=== PATIENT | female | born 1980 | race Caucasian/White ===

== ENCOUNTER 2018-03-22 15:29 | Outpatient (CLI) | payer BC, OTHER ==
--- NOTE | 2018-03-22 19:40 | ULT ---
ULTRASOUND OBSTETRICAL COMPLETE: 03/22/2018 HISTORY: A 37-year-old female. Evaluate size and dates. FINDINGS: number: Peraza. lie: Transverse with head to maternal left. Maternal cervix: 6 cm long and closed. Placenta: Posterior and right lateral. No placenta previa. Amniotic fluid volume: TASNEEM=16.5 cm. heart rate: 149 bpm The following anatomy is visualized, with no evidence of anomalies: Head, lateral ventricles, cerebellum, nose and lips, spine, upper limbs, lower limbs, four chamber he art, umbilical cord, cord insertion, stomach, kidneys, and bladder. biometry: Head circumference (HC): 18.1 cm 20w 4d Biparietal diameter (BPD): 4.8 cm 20w 4d Abdominal circumference (AC): 15.5 cm 20w 5d Femur length (FL): 3.5 cm 21w 1d Average ultrasound age (AUA): 20w 6d Estimated date of delivery (WILMER): 08/03/2018 Last menstrual period (LMP): 10/28/2017 Gestational age by LMP: 20w 5d Estimated weight (EFW): 380 g +/- 56 g (0 lb 13 oz, +/- 2 oz). IMPRESSION: 1. Live second trimester intrauterine gestation. 2. Estimated gestational age of 20 weeks, 6 days. 3. Transverse lie. 4. No anatomical abnormalities. jn [] POS: TPC
== END 2018-03-22 15:30 | disposition home or self-care (01) ==
LOC: BICULT 15:29
PROVIDERS: ATTEND Family Medicine
DX: O09.522 Supervision of elderly multigravida, second trimester (principal); Z3A.20 20 weeks gestation of pregnancy
CPT/HCPCS: 76805

== ENCOUNTER 2018-06-20 15:56 | Inpatient (IN) | payer BC, OTHER ==
[2018-06-20] MEDS ORDERED: Promethazine HCl 25 MG/ML VIAL IM PRN (16:38)
[2018-06-20] MEDS ORDERED: Acetaminophen 500 MG TAB PO PRN (16:38)
[2018-06-20] MEDS ORDERED: Docusate 100 MG CAP PO PRN (16:38)
[2018-06-20] MEDS ORDERED: Ondansetron ODT 8 MG TAB PO PRN (17:00)
[2018-06-20] MEDS ORDERED: hydrALAZINE 20 MG/ML VIAL SLOW IVP SCH (17:00)
[2018-06-20 17:59] LABS: Hemoglobin 10.8 g/dL (12.0-16.0); Mean Corpuscular HGB CONC 32.5 g/dL (32.0-36.0); Mean Corpuscular Hemoglobin 27.3 pg (27.0-31.0); Mean Corpuscular Volume 83.9 fL (78.0-98.0); Mean Platelet Volume 10.3 fL (7.4-10.4); Platelet Count 248 thou/uL (130-400); RBC Distribution Width 13.2 % (11.5-14.5); Red Blood Cell (RBC) Count 3.97 mill/uL (4.20-5.40); White Blood Cell (WBC) Count 11.4 thou/uL (4.8-10.8)
[2018-06-20] MEDS: Betamet Acet/Betamet Na Ph 30 MG/5 ML VIAL IM SCH (18:06)
[2018-06-20 18:25] LABS: ALT (SGPT) 12 U/L (8-55); AST (SGOT) 13 U/L (5-34); Alkaline Phosphatase 85 U/L (40-150); Anion Gap 12 mmol/L (10-20); BUN (Urea Nitrogen) 21 mg/dL (7.0-18.7); Bilirubin, Total 0.2 mg/dL (0.2-1.2); Calc. Creatinine Clearance 187 mL/min (70-130); Calcium 9.4 mg/dL (7.8-10.44); Carbon Dioxide 19 mmol/L (22-29); Chloride 109 mmol/L (98-107); Estimated GFR-MDRD 82; Globulin 2.9 g/dL (2.4-3.5); Glucose 76 mg/dL (70-105); Potassium 4.7 mmol/L (3.5-5.1); Protein, Total 5.9 g/dL (6.0-8.3); Sodium 135 mmol/L (136-145); Uric Acid 6.7 mg/dL (2.6-6.0)
--- NOTE | 2018-06-20 19:31 | ULT ---
Ultrasound biophysical profile: 06/20/2018 HISTORY: 37-year-old female with preeclampsia FINDINGS: tone: 2 breathin movements: 2 Amniotic fluid: 0 TASNEEM: 5 cm IMPRESSION: 1. Oligohydramnios. 2. Biophysical profile score of 6 out of 8, excluding the nonstress test.
--- NOTE | 2018-06-20 20:34 | ULT ---
Ultrasound obstetrical Limited: DATE: 06/20/2018 HISTORY: 37-year-old female with preeclampsia FINDINGS: number:Peraza lie:Breech Maternal cervix: Obscured Placenta:Lateral. No placenta previa. Amniotic fluid: TASNEEM:5 cm. heart rate:149 bpm. anatomy was not evaluated. biometry: BPD: 7.8 cm: 31 w 3 d HC: 30.4 cm: 33 w 6 d AC:27.2 cm: 31 w 2 d FL:6.0 cm: 31 w 3 d Average ultrasound age: 32 w 4 d Estimated date of delivery: 08/11/2018 Estimated weight: 1793g + -265g IMPRESSION: 1) 3rd trimester intrauterine gestation. 2) estimated gestational age of: 32 weeks 4 days 3) lie:Breech 4) oligohydramnios
--- NOTE | 2018-06-20 20:43 | ULT ---
Ultrasound Doppler duplex umbilical artery: 06/20/2018 HISTORY: 37-year-old female with preeclampsia in third trimester of TECHNIQUE: Grayscale, color-flow, and spectral analysis, of umbilical artery FINDINGS: Peak systolic velocity in centimeters per second, end diastolic velocity in centimeters per second, a nd S/D ratio: At cord insertion: 45.4, 18.5, and 2.45 At mid cord: 39.2, 20.1, and 1.95 At placenta insertion: 32.3, 16.0, and 2.02 IMPRESSION: As above
--- NOTE | 2018-06-20 21:46 | ULT ---
RIGHT LOWER EXTREMITY VENOUS DUPLEX ULTRASOUND INCLUDING COLOR AND SPECTRAL DOPPLER IMAGING: History: Right leg edema, 33 weeks . FINDINGS: The exam was performed from groin to ankle including visualized greater saphenous, common femoral, coughlin perficial femoral, profunda femoral, popliteal, trifurcation and posterior tibial veins regions. Ther e is phasic flow at all levels with normal compressibility and normal augmentation. IMPRESSION: No evidence for deep venous thrombosis. POS: RRE
[2018-06-21] MEDS: hydrALAZINE 20 MG/ML VIAL SLOW IVP PRN (00:05)
[2018-06-21] MEDS: Betamet Acet/Betamet Na Ph 30 MG/5 ML VIAL IM SCH (18:21)
[2018-06-21 19:23] LABS: Urine Total Volume 1350 mL (600-1600)
[2018-06-21 20:07] LABS: Protein - 24 Hr 5792 mg/24 hr (Less than 300); Protein, Urine 429 mg/dL (1-14)
[2018-06-22] MEDS ORDERED: Calcium Carbonate 500 MG ChewTAB PO PRN (02:07)
--- NOTE | 2018-06-22 10:42 | ULT ---
Biophysical profile: 06/22/2018 COMPARISON: 06/20/2018 HISTORY: Preeclampsia TECHNIQUE: Multiplanar grayscale sonographic imaging of the gravid uterus obtained. FINDINGS: There is a single intrauterine gestation demonstrating a heart rate of 149 bpm. presentation is vertex. There is heterogeneity of the placenta. Amniotic fluid index is 6.2 cm. The sole rounding machine operator reports a 2 out of 2 score for tone, movement, and amniotic fluid. The so nographer reports a 0 out of 2 score for breathing. IMPRESSION: Single live intrauterine gestation as above. Biophysical profile score is 6 out of 8. The sole rounding machine operator reports that this information was relayed to Sasha, the labor and delivery nurse, at the time of this study. Low amniotic fluid index of 6.2 cm.
[2018-06-23] MEDS: hydrALAZINE 20 MG/ML VIAL SLOW IVP PRN ×2 (05:40→13:08)
[2018-06-23 06:40] LABS: Hemoglobin 10.2 g/dL (12.0-16.0); Mean Corpuscular HGB CONC 32.3 g/dL (32.0-36.0); Mean Corpuscular Hemoglobin 26.7 pg (27.0-31.0); Mean Corpuscular Volume 82.8 fL (78.0-98.0); Mean Platelet Volume 10.9 fL (7.4-10.4); Platelet Count 246 thou/uL (130-400); RBC Distribution Width 13.3 % (11.5-14.5); Red Blood Cell (RBC) Count 3.81 mill/uL (4.20-5.40); White Blood Cell (WBC) Count 12.1 thou/uL (4.8-10.8)
[2018-06-23 07:05] LABS: ALT (SGPT) 20 U/L (8-55); AST (SGOT) 18 U/L (5-34); Albumin 2.6 g/dL (3.5-5.0); Alkaline Phosphatase 71 U/L (40-150); Anion Gap 11 mmol/L (10-20); BUN (Urea Nitrogen) 20 mg/dL (7.0-18.7); Bilirubin, Total Less than 0.2 mg/dL (0.2-1.2); Calc. Creatinine Clearance 214 mL/min (70-130); Calcium 8.1 mg/dL (7.8-10.44); Carbon Dioxide 20 mmol/L (22-29); Chloride 109 mmol/L (98-107); Estimated GFR-MDRD Greater than 90; Globulin 2.5 g/dL (2.4-3.5); Glucose 91 mg/dL (70-105); Potassium 4.3 mmol/L (3.5-5.1); Protein, Total 5.1 g/dL (6.0-8.3); Sodium 136 mmol/L (136-145); Uric Acid 8.1 mg/dL (2.6-6.0)
--- NOTE | 2018-06-23 07:36 | ULT ---
BIOPHYSICAL PROFILE OB ULTRASOUND: Date: 06/23/18 INDICATION: heart tone deceleration. FINDINGS: Reference made to 06/22/18 exam. movement: 2 tone: 2 breathing movements: 2 Amniotic fluid volume: 2 Biophysical profile score: 8/8 TASNEEM measured at 9.5 cardiac activity documented at 152 beats/minute. As demonstrated, fetus is in cephalic lie. IMPRESSION: Biophysical profile score 8/8. POS: TAMARK
--- NOTE | 2018-06-23 08:56 | ULT ---
LIMITED OBSTETRICAL ULTRASOUND UMBILICAL ARTERIAL DOPPLER ULTRASOUND: Date: 06/23/2018 HISTORY: 37-year-old female with preeclampsia TECHNIQUE: Multiplanar grayscale sonographic imaging of the gravid uterus obtained. Doppler interrog ation of the umbilical artery with color flow and spectral analysis performed. FINDINGS: Cervical length is 5 cm. Single intrauterine gestation present with vertex presentation. heart rate is 157 bpm. anatomy was not fully assessed on this examination. The placenta is located on the right, and demonstrates no evidence for abruption or previa. Amniotic fluid index is 11 cm. Biometry: BPD: 8.2 cm, 32 weeks 6 days HC: 31.1 cm, 34 weeks 5 days AC: 29.3 cm , 33 weeks 2 days FL: 6.3 cm, 32 weeks 5 days Average age based on ultrasound is 33 weeks 5 days. Estimated date of delivery is 08/06/2018 Estimated weight is 2150 g, +/- 318 g. Umbilical arterial Doppler ultrasound performed. Peak systolic velocity of the umbilical artery range s from 37 cm/second to 52 cm/second with a systolic/diastolic ratio measuring 1.8-2.7 cm. IMPRESSION: Single live intrauterine gestation as detailed above. Transcribed Date/Time: 06/23/2018 9:17 AM
[2018-06-23] MEDS ORDERED: Penicillin G Potassium 5 MILL.UNITS VIAL ONE (11:36)
[2018-06-23] MEDS ORDERED: Magnesium Sulfate 20 gm/500 ml 20 GM/500 ML BAG ONE (11:36)
[2018-06-23 12:18] LABS: Hemoglobin 11.3 g/dL (12.0-16.0); Mean Corpuscular HGB CONC 32.3 g/dL (32.0-36.0); Mean Corpuscular Hemoglobin 26.9 pg (27.0-31.0); Mean Corpuscular Volume 83.5 fL (78.0-98.0); Mean Platelet Volume 10.7 fL (7.4-10.4); Platelet Count 251 thou/uL (130-400); RBC Distribution Width 13.5 % (11.5-14.5); Red Blood Cell (RBC) Count 4.19 mill/uL (4.20-5.40); White Blood Cell (WBC) Count 12.5 thou/uL (4.8-10.8)
[2018-06-23] MEDS ORDERED: NS w/ Oxytocin 10 units 500 ML ONE (12:25)
[2018-06-23] MEDS ORDERED: hydrALAZINE 20 MG/ML VIAL ONE (13:02)
[2018-06-23] MEDS ORDERED: Ketorolac Tromethamine 30 MG/ML VIAL ONE ×2 (14:00→15:39)
[2018-06-23] MEDS ORDERED: Metoclopramide HCl 10 MG/2 ML VIAL ONE ×2 (14:00→14:41)
[2018-06-23] MEDS ORDERED: Ondansetron PF 4 MG/2 ML Vial ONE ×2 (14:00→14:41)
[2018-06-23] MEDS ORDERED: Bicitra 30 ML UDCUP ONE (14:26)
[2018-06-23] MEDS ORDERED: MORPHINE 5 MG/10 ML PF VIAL ONE (14:40)
[2018-06-23] MEDS ORDERED: Oxytocin 10 UNITS/ML VIAL ONE (14:41)
[2018-06-23] MEDS ORDERED: HYDROcodone/Acetaminophen 5/325 mg Tablet PO PRN ×2 (16:16)
[2018-06-23] MEDS ORDERED: Calcium Gluconate 4.6 MEQ, Admixture Fee 1 EACH in Sodium Chloride 0.9% 100 ML IVPB PRN (16:16)
[2018-06-23] MEDS ORDERED: NS / Oxytocin 40 units/1000ml 1,000 ML IV SCH (16:16)
[2018-06-23] MEDS ORDERED: diphenhydrAMINE 25 MG CAP PO PRN (16:16)
[2018-06-23] MEDS ORDERED: Magnesium Sulfate 20 GM/WATER 500 ML BAG IVPB SCH (16:16)
[2018-06-23] MEDS ORDERED: Lanolin Ointment 7 GM TUBE TOP PRN (16:16)
[2018-06-23] MEDS ORDERED: Meperidine HCl/PF 25 MG/ML VIAL IM PRN (16:16)
[2018-06-23] MEDS ORDERED: Bisacodyl 10 MG SUPP PR PRN (16:16)
[2018-06-23] MEDS ORDERED: Simethicone Chewable 80 MG TAB PO PRN (16:16)
[2018-06-23] MEDS ORDERED: HYDROmorphone 2 MG/ML VIAL SLOW IVP PRN (16:21)
[2018-06-23] MEDS ORDERED: Ondansetron HCl/PF 4 MG/2 ML Vial IVP PRN (16:21)
[2018-06-23] MEDS ORDERED: L&D-Morphine 4 MG/ML VIAL SLOW IVP PRN (16:21)
[2018-06-23] MEDS: Magnesium Sulfate 20 gm/500 ml 20 GM/500 ML BAG IVPB SCH (16:30)
[2018-06-23] MEDS ORDERED: Meperidine HCl/PF 25 MG/ML VIAL ONE (18:44)
[2018-06-23] MEDS: Meperidine HCl/PF 25 MG/ML VIAL SLOW IVP PRN ×2 (18:46→19:20)
[2018-06-23] MEDS: Ondansetron PF 4 MG/2 ML Vial IVP PRN (21:40)
[2018-06-23] MEDS ORDERED: Ibuprofen 800 MG TAB PO SCH (22:00)
--- NOTE | 2018-06-23 23:43 | OP ---
DATE OF PROCEDURE: 06/23/2018 PREOPERATIVE DIAGNOSES: 1. 34 week . 2. Severe preeclampsia. 3. Advanced maternal age. 4. Non-reassuring status. POSTOPERATIVE DIAGNOSES: 1. 34 week . 2. Severe preeclampsia. 3. Advanced maternal age. 4. Non-reassuring status. PROCEDURE PERFORMED: Primary low cervical transverse . HYDROGEN BRAZE FURNACE OPERATOR: Dr. Shah. ANESTHESIA: Spinal. DESCRIPTION OF EVENT: After informed consent was obtained from the patient and her spouse, she was taken to the operating room and spinal anesthesia was administered. She was then prepped and draped in the usual sterile fashion. A Pfannenstiel incision was created with a #10 scalpel blade and carried down to the fascia. Skin bleeders were cauterized with the Bovie. The fascia was nicked in the midline and was extended transversely with [place] scissors. The superior fascial segments were grasped with Kochers and elevated. The underlying rectus muscles were dissected free, first bluntly and then sharply with [place] scissors. This was repeated with inferior fascial segment. Rectus muscles were divided in the midline with blunt dissection. Bladder blade was inserted. The vesicouterine serosa was grasped with a hemostat and elevated and a bladder flap was created with Metzenbaum scissors and blunt dissection. Bladder blade was then re-inserted to protect the bladder. The uterus was entered in the low-transverse fashion with a clean #10 scalpel blade. Clear amniotic fluid was encountered. The vertex was delivered on to the operative field followed by the remainder of the . The cord was clamped x2 and a vigorous male was handed to the staff in attendance. Cord blood was obtained. The placenta was manually extracted. The uterus was exteriorized and freed of clots and debris. The placenta was sent to pathology for review. The uterus was repaired with a running locking suture of 0-Vicryl and a single full-thickness layer followed by a second imbricating layer, which also served to repair the bladder flap. The abdomen was copiously irrigated, Seprafilm was applied to the repair of the uterine incision. At this point, the tubes and ovaries were inspected and the left fimbria was bleeding briskly from one of the segments. Clamping with the hemostat did not control the bleeding nor did electrocautery. Fimbria was removed along with the small section of the distal fallopian tube in modified [place] fashion. The uterus was returned. Hemostasis was again observed. The peritoneum was repaired with running suture of 3-0 Vicryl and the fascia was repaired with a running suture of 0-PDS. Three interrupted sutures of 3-0 Vicryl were placed in subdermal layer to reapproximate the skin, which was closed with skin say. Sponge and instrument counts were correct x4. She tolerated the procedure well and suffered no acute complications. She was taken to Recovery in stable condition, infant to NICU in a stable condition. FINDINGS: Viable male infant, 3 pounds, 15 ounces. SPECIMENS: Placenta and fimbria to pathology. ESTIMATED BLOOD LOSS: 600 mL. Job ID: [id number] MTDD
[2018-06-24] MEDS: Magnesium Sulfate 20 gm/500 ml 20 GM/500 ML BAG IVPB SCH (00:44)
[2018-06-24] MEDS: Ferrous Sulfate 325 MG TAB PO SCH ×3 (00:45→21:02)
[2018-06-24] MEDS: Docusate Calcium (SURFAK) 240 MG CAP PO SCH ×3 (00:45→21:02)
[2018-06-24] MEDS ORDERED: Meperidine HCl/PF 25 MG/ML VIAL ONE (01:17)
[2018-06-24] MEDS: Ondansetron PF 4 MG/2 ML Vial IVP PRN (01:29)
[2018-06-24] MEDS: hydrALAZINE 20 MG/ML VIAL SLOW IVP SCH ×2 (05:32→06:05)
[2018-06-24] MEDS ORDERED: Furosemide 40 MG/4 ML VIAL SLOW IVP SCH (06:00)
--- NOTE | 2018-06-24 06:12 | PDOC.EVN ---
Event Note - Event Note Event Note: CTSP by rn discharge re: OU. Pt. has had no urine output x 3 hours. MG at 2 gms/hr with total IV at 125/hr. BP now 170's systolic, Apresoline ordered. Chest CTA, extremities with 3+ edema. CBC, CHEM 20 and Mg level drawn. Will give Lasix 20 mg now and observe closely. D/w Dr. Holden.
[2018-06-24 06:22] LABS: Hemoglobin 11.2 g/dL (12.0-16.0); Mean Corpuscular Hemoglobin 27.1 pg (27.0-31.0); Mean Corpuscular Volume 84.7 fL (78.0-98.0); Mean Platelet Volume 11.1 fL (7.4-10.4); Platelet Count 80 thou/uL (130-400); RBC Distribution Width 13.9 % (11.5-14.5); Red Blood Cell (RBC) Count 4.14 mill/uL (4.20-5.40); White Blood Cell (WBC) Count 20.9 thou/uL (4.8-10.8)
[2018-06-24 06:38] LABS: ALT (SGPT) 97 U/L (8-55); AST (SGOT) 144 U/L (5-34); Albumin 2.6 g/dL (3.5-5.0); Alkaline Phosphatase 70 U/L (40-150); Anion Gap 15 mmol/L (10-20); BUN (Urea Nitrogen) 27 mg/dL (7.0-18.7); Bilirubin, Total 1.2 mg/dL (0.2-1.2); Calc. Creatinine Clearance 74 mL/min (70-130); Calcium 7.9 mg/dL (7.8-10.44); Carbon Dioxide 19 mmol/L (22-29); Chloride 103 mmol/L (98-107); Estimated GFR-MDRD 28; Globulin 2.6 g/dL (2.4-3.5); Glucose 117 mg/dL (70-105); Potassium 4.7 mmol/L (3.5-5.1); Protein, Total 5.2 g/dL (6.0-8.3); Sodium 132 mmol/L (136-145)
[2018-06-24] MEDS ORDERED: Labetalol HCl 100 MG/20 ML VIAL ONE (06:45)
[2018-06-24] MEDS ORDERED: Labetalol HCl 100 MG/20 ML VIAL SLOW IVP SCH (07:00)
--- NOTE | 2018-06-24 07:55 | RAD ---
CHEST 1 VIEW: HISTORY: PIH, concern for pulmonary edema. FINDINGS: Heart size is normal. The lungs are clear. IMPRESSION: No acute intrathoracic disease. No pneumonia or acute edema. POS: TPC
[2018-06-24] MEDS ORDERED: hydrALAZINE 20 MG/ML VIAL ONE (08:05)
[2018-06-24] MEDS ORDERED: hydrALAZINE 20 MG/ML VIAL SLOW IVP SCH (08:30)
--- NOTE | 2018-06-24 08:42 | PDOC.EVN ---
Event Note - Event Note Event Note: @0833: OBGYN [facility]ER [facility] L&D Note: HELLP SYNDROME Case reviewed with Dr Shay this AM, and with our RN, Verito. CS 06/23/18 at 1500 for severe preeclampsia. Last hours with minimum to no UOP. Cr last check this AM was 1.99 LFTS increasing with AST 144 and ALT 97....CR NOW 1.99 No real response to IV 20mg Lasix this AM. I just called Dr Lazcano with renal. I discussed the case with him as he is RENAL surety bond agent. He will help us with her MALVIN. he will see her this AM SARANYA. I have introduced myself to the patient and I have explained the results and significance to her. With incresaing LFTS and decreasing platelets (80), I have DX her with HELLP syndrome
[2018-06-24] MEDS ORDERED: Adacel (T-DAP) 0.5 ML SYRINGE IM ONE (09:00)
[2018-06-24] MEDS ORDERED: Losartan 25 MG TAB PO SCH (09:00)
[2018-06-24] MEDS ORDERED: Heparin 1,000 UNITS/ML VIAL ONE (11:11)
--- NOTE | 2018-06-24 11:14 | PDOC.EVN ---
Event Note - Event Note Event Note: OBGYN: D/W Dr Ventura...no steroids for now (for HELLP) as data not clear. SACHI Fuentes...not yet recived Follow UOP
--- NOTE | 2018-06-24 11:45 | PDOC.EVN ---
Event Note - Event Note Event Note: Labs reordered at [address] Ventura...follow K levels Mag remains OFF Allow for spontaneous ATN resolution IVFs off
[2018-06-24 12:52] LABS: ALT (SGPT) 88 U/L (8-55); AST (SGOT) 151 U/L (5-34); Albumin 2.4 g/dL (3.5-5.0); Alkaline Phosphatase 62 U/L (40-150); Anion Gap 14 mmol/L (10-20); BUN (Urea Nitrogen) 31 mg/dL (7.0-18.7); Bilirubin, Total 0.9 mg/dL (0.2-1.2); Calc. Creatinine Clearance 58 mL/min (70-130); Calcium 7.7 mg/dL (7.8-10.44); Carbon Dioxide 20 mmol/L (22-29); Chloride 103 mmol/L (98-107); Estimated GFR-MDRD 21; Globulin 2.5 g/dL (2.4-3.5); Glucose 108 mg/dL (70-105); Magnesium 8.4 mg/dL (1.6-2.6); Potassium 5.1 mmol/L (3.5-5.1); Protein, Total 4.9 g/dL (6.0-8.3); Sodium 132 mmol/L (136-145)
--- NOTE | 2018-06-24 13:06 | PDOC.EVN ---
Event Note - Event Note Event Note: @1253: Called to bedside to evaluate patient's stapled pfannessteil incision. I arrived 3 minutes after call... incision intact but noted to have some bright red blood leakage...none now...some ecchymosis superficially at left lateral border of incision. I examined at bedside...wound did not separate.. I ordered a pressure dressing for now...and await noon CBC results. I suspect this may be platelet related. If results under 50K...I will order a 6pack of PLTS due to incision status. Monitor closely...contact Dr leung (requested RN to call as I am with another ill patient)
[2018-06-24 13:30] LABS: Mean Corpuscular HGB CONC 31.9 g/dL (32.0-36.0); Mean Corpuscular Volume 84.6 fL (78.0-98.0); Mean Platelet Volume 9.3 fL (7.4-10.4); Platelet Count 62 thou/uL (130-400); RBC Distribution Width 13.8 % (11.5-14.5)
[2018-06-24] MEDS ORDERED: Furosemide 20 MG/2 ML VIAL SLOW IVP SCH (13:45)
--- NOTE | 2018-06-24 13:47 | PDOC.EVN ---
Event Note - Event Note Event Note: ZARINA Lab check from noon: K 5.1 (was 4.7) Mag 8.4 CR 2.56 (was 1.99) PLATELETS 62 (were 80) I have reviewed these labs with the RN (Verito) and reviewed with Dr Ventura (renal ) by secure text... BPs non-severe at this time I will: 1. Give lasix 20mg IV x 1 now 2. Repeat all labs at 1430 (2 hours from last) 3. Stop IV demerol to prevent excess sedation 4. close watch on incision
--- NOTE | 2018-06-24 14:08 | PDOC.EVN ---
Event Note - Event Note Event Note: OBGYN: @1410: Here with Dr ventura at bedside: Case reviewed with and patient. Due to slightly altered mental status, and fact that MAG not clearing well ( level at 8)...Dr Ventura has elected to temporarily dialyze to reverse the increasing uremia. Dr hanson notified....patient will need ICU transfer We will give calcium gluconate now 1 amp, also with the lasix. Dr Holden notified by secure text
[2018-06-24 14:13] LABS: Bilirubin Negative (Negative); Blood, Urine Large (Negative); Glucose, Urine (Dipstick) Negative (Negative); Leukocyte Negative (Negative); Nitrite Negative (Negative); Protein, Urine (Dipstick) 300 mg/dL (Neg-Trace); Specific Gravity, Urine 1.011 (1.002-1.036); Urobilinogen 0.2 mg/dL (0.2-1.0); pH, Urine 5.5 (5.0-9.0)
[2018-06-24 14:15] LABS: Bacteria/HPF None Seen HPF (None Seen); Hyaline Casts/LPF 0-3 HYALINE CAST LPF (0-3 Hyaline); Pathc Cast-AUWi Flag 0.13 (0-2.49); RBC/HPF GREATER THAN 50-TNTC HPF (0-3)
[2018-06-24 14:17] LABS: Clarity Slightly Cloudy (Clear)
[2018-06-24 14:28] LABS: Transitional Epithelial 0-3 HPF (0-3)
--- NOTE | 2018-06-24 16:26 | CON ---
DATE OF CONSULTATION: REASON FOR CONSULTATION: Anuria. HISTORY OF PRESENT ILLNESS: This is a 37-year-old female, who developed HELLP syndrome, was noted to have elevated creatinine, develop anuria, and creatinine doubled from 0.69 yesterday to 1.9 today and 2.5 later this afternoon. The patient delivered successfully. The patient had no hypotensive episodes. PAST MEDICAL HISTORY: Except childbirth, no other significant history and . SOCIAL HISTORY: No alcohol or drug use. FAMILY HISTORY: Negative for ESRD. ALLERGIES: REVIEWED. HOME MEDICATIONS: List reviewed. HOSPITAL MEDICATIONS: List reviewed. REVIEW OF SYSTEMS: A 15-point review of systems was performed and negative except for positives noted above. GENERAL: HEAD: NECK: No swelling or lumps. NOSE: No epistaxis or discharge. EYES: No diplopia or pain. RESPIRATORY: CARDIOVASCULAR: GASTROINTESTINAL: /PROPERTY MANAGEMENT SPECIALIST: MUSCULOSKELETAL: No joint pain. NEUROPSYCHIATRIC SYSTEMS: No suicidal ideation. No ideation. SKIN: Denies any rash or ulcer. CONSTITUTIONAL: No fever or chills. PHYSICAL EXAMINATION: CONSTITUTIONAL: The patient is awake and alert. VITAL SIGNS: Afebrile, pulse 84, breathing 16, and blood pressure . GENERAL APPEARANCE AND MENTAL STATUS: Fair. HEAD/NECK: Normocephalic. Atraumatic. EYES: EOMI. No deformity. EARS: Clear. No ulcers. NOSE: Intact. No lesions. MOUTH: Clear. No discharge. THROAT: Clear. No exudate. LUNGS: Clear. No crackles. CARDIAC: S1, S2. No rub. ABDOMEN: Benign. Bowel sounds positive. GENITALIA/RECTUM: Price absent. BACK/EXTREMITIES: Edema 0+. NEUROLOGICAL: Alert and motor intact. SKIN: LYMPHATICS: LABORATORY DATA: Labs show creatinine 2.5, bicarb 20, . ASSESSMENT AND PLAN: Acute kidney injury and chronic kidney disease due to HELLP syndrome and multiple organ failure. No indication for dialysis. Hypertension, stable. Anemia, stable. Can use Lasix p.r.n. Hypermagnesemia, we will follow. Her magnesium has improved. Overall prognosis poor. Job ID: [id number]
[2018-06-24 17:55] LABS: Hemoglobin 9.2 g/dL (12.0-16.0); Mean Corpuscular HGB CONC 32.5 g/dL (32.0-36.0); Mean Corpuscular Hemoglobin 27.5 pg (27.0-31.0); Mean Corpuscular Volume 84.6 fL (78.0-98.0); Mean Platelet Volume 12.2 fL (7.4-10.4); Platelet Count 49 thou/uL (130-400); RBC Distribution Width 13.9 % (11.5-14.5); Red Blood Cell (RBC) Count 3.35 mill/uL (4.20-5.40); White Blood Cell (WBC) Count 15.3 thou/uL (4.8-10.8)
[2018-06-24 18:03] LABS: ALT (SGPT) 79 U/L (8-55); AST (SGOT) 127 U/L (5-34); Albumin 2.4 g/dL (3.5-5.0); Alkaline Phosphatase 61 U/L (40-150); Anion Gap 15 mmol/L (10-20); BUN (Urea Nitrogen) 34 mg/dL (7.0-18.7); Bilirubin, Total 0.8 mg/dL (0.2-1.2); Calc. Creatinine Clearance 50 mL/min (70-130); Calcium 7.8 mg/dL (7.8-10.44); Carbon Dioxide 18 mmol/L (22-29); Chloride 103 mmol/L (98-107); Estimated GFR-MDRD 18; Globulin 2.4 g/dL (2.4-3.5); Glucose 96 mg/dL (70-105); Protein, Total 4.8 g/dL (6.0-8.3); Sodium 131 mmol/L (136-145)
[2018-06-24] MEDS: Prenatal Vitamin 1 TAB PO SCH (18:14)
[2018-06-24 18:48] LABS: HBSAB Concentration 1.98 mIU/mL; Hep B Surf AB Non-Reactive (NonReactive); Hep B Surf Ag Non-Reactive S/CO (NonReactive)
--- NOTE | 2018-06-24 20:30 | PDOC.EVN ---
Event Note - Event Note Event Note: Patient still in Dialysis at the moment. I D/C'd the norco and switched to regular tylenol at patient request. I updated the L&D charge nurse on patient status. She will likely return to L&D for close monitoring once cleared by Dr Ventura.
--- NOTE | 2018-06-24 20:43 | PDOC.EVN ---
Event Note - Event Note Event Note: Lab check: Last platelets 49 at last check HCT [address] Ventura..secure message sent. She will continue in ICU and repeat labs after dialysis. Dialysis should not affect platlets....HELLP persisting or HUS? I have tiger texted Dr Arreola ([facility]) operational test mechanic...awaiting reply.
--- NOTE | 2018-06-24 20:58 | PDOC.EVN ---
Event Note - Event Note Event Note: Called lab..will add diff to last hemogram ordered
[2018-06-24] MEDS: Acetaminophen 500 MG TAB PO PRN (21:01)
[2018-06-24 21:27] LABS: Band 9 % (5-11); Hypochromia SLIGHT = 6-15 cells (100X) (0-5/hpf); Lymphocytes 14 % (21-51); MDiff Complete? YES; Monocytes 4 % (0-10); Neutrophil 73 % (42-75); Platelet Morphology Comment Appears Decreased
[2018-06-24] MEDS: Sodium Chloride 0.9% 1,000 ML IV SCH (21:35)
[2018-06-24 23:49] LABS: Hemoglobin 8.1 g/dL (12.0-16.0); Mean Corpuscular HGB CONC 32.4 g/dL (32.0-36.0); Mean Corpuscular Hemoglobin 27.2 pg (27.0-31.0); Mean Platelet Volume 12.3 fL (7.4-10.4); Platelet Count 47 thou/uL (130-400); RBC Distribution Width 14.1 % (11.5-14.5); Red Blood Cell (RBC) Count 2.97 mill/uL (4.20-5.40); White Blood Cell (WBC) Count 12.6 thou/uL (4.8-10.8)
[2018-06-25 00:03] LABS: ALT (SGPT) 64 U/L (8-55); AST (SGOT) 90 U/L (5-34); Albumin 2.1 g/dL (3.5-5.0); Alkaline Phosphatase 54 U/L (40-150); Anion Gap 11 mmol/L (10-20); BUN (Urea Nitrogen) 21 mg/dL (7.0-18.7); Bilirubin, Total 0.6 mg/dL (0.2-1.2); Calc. Creatinine Clearance 65 mL/min (70-130); Calcium 7.6 mg/dL (7.8-10.44); Carbon Dioxide 25 mmol/L (22-29); Chloride 103 mmol/L (98-107); Estimated GFR-MDRD 24; Globulin 2.3 g/dL (2.4-3.5); Glucose 128 mg/dL (70-105); Magnesium 4.7 mg/dL (1.6-2.6); Potassium 4.2 mmol/L (3.5-5.1); Protein, Total 4.4 g/dL (6.0-8.3); Sodium 135 mmol/L (136-145)
--- NOTE | 2018-06-25 01:21 | PDOC.EVN ---
Event Note - Event Note Event Note: Postdialysis Labs: Platlets stable at 47; HCT 25: cr 2.2; Mag level coming down to 4.7 Repeat CBC and CMP in AM 0800
--- NOTE | 2018-06-25 02:27 | CON ---
DATE OF CONSULTATION: REASON FOR CONSULT: Dialysis access. HISTORY OF PRESENT ILLNESS: Ms. Balbuena is a 37-year-old woman who was admitted to the hospital from her [facility] due to severe hypertension. She was found to have HELLP syndrome and was admitted to the hospital, and underwent yesterday. She has gone into acute renal failure due to HELLP syndrome and her media supervisor has recommended hemodialysis due to high magnesium levels. The patient and her have decided to proceed with this and she is being transferred to CCU. PAST MEDICAL HISTORY: None. Previous pregnancies were uncomplicated. PAST SURGICAL HISTORY: Recent . Other deliveries were vaginal. ALLERGIES: NO KNOWN DRUG ALLERGIES. OUTPATIENT MEDICATIONS: Just vitamins. REVIEW OF SYSTEMS: 10-system review of systems is negative except for fatigue, some tingling in her fingers, and abdominal pain related to her . She also has some shortness of breath, which is worse when she lies flat. FAMILY HISTORY: Noncontributory. SOCIAL HISTORY: She is a G7, P6 with 1 miscarriage. Does not smoke, drink, or use illicit drugs. LABORATORY DATA: Platelet count is 60, white count is slightly elevated at 17, but this is actually down from earlier today, H and H are stable at 10 and 31. BUN and creatinine are elevated at 31 and 2.56, potassium is high normal at 5.1, and magnesium is 8.4. AST and ALT are elevated at 151 and 88, and BNP is elevated at 221. PHYSICAL EXAMINATION: VITAL SIGNS: Blood pressure is still elevated. Heart rate is in the 90s to 100s. She is 100% saturated on room air and is afebrile. GENERAL: Reveals a tired-appearing woman, in no acute distress. She is not flushed or toxic in appearance. HEENT: Unremarkable. NECK: Supple. HEART: Regular in its rate and rhythm without murmurs, rubs, or gallops. LUNGS: Clear to auscultation bilaterally. ABDOMEN: Tender to palpation inferiorly, but otherwise unremarkable. EXTREMITIES: Warm and well perfused with some ankle edema. NEUROLOGIC: No focal deficits. PSYCHIATRIC: Alert, oriented, and appropriate. ASSESSMENT: Acute renal failure due to hemolysis, elevated liver enzymes, and low platelet count syndrome with hypermagnesemia for which hemodialysis has been recommended by her media supervisor and she will require access for this. She is being transferred to the CCU and the dialysis catheter and hemodialysis will be performed there. Inherent risks of dialysis catheter placement were discussed with the patient and her . These risks include, but are not limited to, bleeding, infection, risks of anesthesia, deep venous thrombosis, and need for other procedures. She understands that her risk of bleeding is elevated due to her low platelet count. They wished to proceed with dialysis catheter placement. All of their questions were answered. Job ID: [id number]
[2018-06-25] MEDS: Acetaminophen 500 MG TAB PO PRN (04:10)
[2018-06-25 06:42] LABS: Band 1 % (5-11); Hemoglobin 7.4 g/dL (12.0-16.0); Hypochromia SLIGHT = 6-15 cells (100X) (0-5/hpf); Lymphocytes 14 % (21-51); MDiff Complete? YES; Mean Corpuscular HGB CONC 32.5 g/dL (32.0-36.0); Mean Corpuscular Hemoglobin 27.5 pg (27.0-31.0); Mean Corpuscular Volume 84.4 fL (78.0-98.0); Mean Platelet Volume 12.1 fL (7.4-10.4); Monocytes 5 % (0-10); Neutrophil 80 % (42-75); Platelet Count 46 thou/uL (130-400); Platelet Morphology Comment Appears Decreased; RBC Distribution Width 13.9 % (11.5-14.5); Red Blood Cell (RBC) Count 2.67 mill/uL (4.20-5.40); White Blood Cell (WBC) Count 12.2 thou/uL (4.8-10.8)
[2018-06-25 06:51] LABS: ALT (SGPT) 52 U/L (8-55); AST (SGOT) 64 U/L (5-34); Albumin 2.1 g/dL (3.5-5.0); Alkaline Phosphatase 50 U/L (40-150); Anion Gap 9 mmol/L (10-20); BUN (Urea Nitrogen) 26 mg/dL (7.0-18.7); Bilirubin, Total 0.5 mg/dL (0.2-1.2); Calc. Creatinine Clearance 51 mL/min (70-130); Calcium 7.4 mg/dL (7.8-10.44); Carbon Dioxide 27 mmol/L (22-29); Chloride 103 mmol/L (98-107); Estimated GFR-MDRD 18; Globulin 2.1 g/dL (2.4-3.5); Glucose 91 mg/dL (70-105); Potassium 4.4 mmol/L (3.5-5.1); Protein, Total 4.2 g/dL (6.0-8.3); Sodium 135 mmol/L (136-145)
--- NOTE | 2018-06-25 07:46 | PDOC.EVN ---
Event Note - Event Note Event Note: @0730: POD2 HELLP Acute Renal Failure S/P Dialysis x1 I went to CC9 to see Kendra. Patient sleeping. Report gathered from her CCU RN. Jennifer AM labs (0800) ICU MD to see patient today...still with limited UOP Dr Ventura to assess today SCDs in place Await ICU MD patricio
[2018-06-25] MEDS: Prenatal Vitamin 1 TAB PO SCH (09:34)
[2018-06-25] MEDS: Docusate Calcium (SURFAK) 240 MG CAP PO SCH ×2 (09:34→20:12)
[2018-06-25] MEDS: Ferrous Sulfate 325 MG TAB PO SCH ×2 (09:34→20:12)
[2018-06-25] MEDS ORDERED: Heparin 10,000 UNITS/ 10 ML VIAL ONE (11:11)
--- NOTE | 2018-06-25 14:00 | PRG ---
DATE OF SERVICE: 06/25/2018 SUBJECTIVE: This is a 37-year-old female being seen for acute kidney injury. The patient has started to make urine. The patient had some changes in her vision. The patient felt really strong after dialysis. OBJECTIVE: GENERAL: On examination, the patient is awake, alert. VITAL SIGNS: Afebrile, pulse 92, breathing 16, and blood pressure 130/79. HEENT: Head examination normocephalic, atraumatic. NECK: Supple. No JVD. CHEST: Symmetrical and clear. CARDIOVASCULAR: Shows S1 and S2. EXTREMITIES: Show edema present. LABORATORY DATA: Labs show hemoglobin 7.4. Creatinine 2.9. Urine output 25 to 50 mL/h. Serum magnesium was 4.8. ASSESSMENT AND RECOMMENDATION: 1. Acute kidney injury with acute tubular necrosis, multifactorial, but with hypermagnesemia. We will plan dialysis. 2. Anemia. 3. Pancytopenia. 4. Hypoalbuminemia. Management per Primary Team. Medications based on glomerular filtration rate are appropriate. Job ID: [id number]
--- NOTE | 2018-06-25 14:02 | CON ---
DATE OF CONSULTATION: HISTORY OF PRESENT ILLNESS: Kendra Balbuena is a 37-year-old female, transferred to the ICU last night with the HELLP syndrome. Thrombocytopenia, renal failure, elevated liver enzymes, and LDH. Her magnesium level yesterday was markedly elevated. Nephrology was consulted and underwent dialysis. Initial magnesium level of 9, upper limit of magnesium level is 2.6. Magnesium level last night was 4.7. She is making good urine. This morning, her main symptoms are visual. She sees having some kind of floaters in the eyes, especially moves her eyes somewhat blurry. She had difficulty breathing yesterday, which is much improved. Denies any chest pain, chills, or sweats. Prior to her recent 6th child delivery, she was asymptomatic. No history of diabetes or hypertension. PAST MEDICAL HISTORY: No known history of diabetes or hypertension. PAST SURGICAL HISTORY: This is her 6th child. The oldest child is 10. She was 34 weeks and had preeclampsia starting in the last week as per the patient's OB doctor. She underwent a low-cervical on 05/24/2018 with 600 mL of blood loss. HOME MEDICINE: Include vitamin. SOCIAL HISTORY: Otherwise, no alcohol or tobacco use. REVIEW OF SYSTEMS: 10-point negative. PHYSICAL EXAMINATION: GENERAL: She is in no distress. VITAL SIGNS: Saturations are 96% on room air, pulse 80, blood pressure . She has good urine output. CHEST: Reveals no wheezing or crackles. CARDIAC: Normal S1 and S2. No gallops. ABDOMEN: Soft. EXTREMITIES: No edema. LABORATORY DATA: White count 12,000, H and H of 7 and 22, platelet count is 46, admission platelet count on 06/23 was 251. BUN and creatinine are 26 and 2.92. Her BNP was normal. LDH is 1000. Liver function; ALT is 127, AST 179; today number is AST is 90, ALT is 64, dropped substantially. Urine was normal except for rbc's. IMPRESSION: 1. Preeclampsia with HELLP syndrome. She underwent emergency . 2. Emergency dialysis for hypomagnesemia. Levels are normal. 3. Renal failure. PLAN: At this stage, treatment for HELLP is outlined, immediate delivery of the baby is being done. If her symptoms continue to worsen with worsening thrombocytopenia, plasmapheresis could be an option. She may have to be transferred to a tertiary care institution. I am told Hematology has been consulted. Pulmonary/Critical Care will follow while in the ICU. Otherwise, at this stage looking additional to follow, nothing additional to offer, serial exam and serial lab. She was never hypotensive during her recent and in fact she has been hypertensive. Consultation note in the ICU 70 minutes, 50% direct patient care. Job ID: [id number]
--- NOTE | 2018-06-25 14:03 | MRI ---
Noncontrast enhanced MRI images brain. HISTORY: Severe preeclampsia and visual field defects. Noncontrast enhanced MRI images of the brain obtained. Images demonstrate no evidence of areas of diffusion restriction. No evidence of intracranial masses, hemorrhages or strokes seen. Normal flow void seen in the major i ntracranial vessels. No evidence of T2 signal abnormality seen. No evidence of vasogenic edema seen. No evidence of changes seen associated with posterior reversible encephalopathy syndrome (CT ES). IMPRESSION: Normal noncontrast enhanced MRI brain.
[2018-06-25 14:46] LABS: Platelet Count 63 thou/uL (130-400)
[2018-06-25 14:51] LABS: Fibrinogen 339 mg/dL (253-463)
[2018-06-25 14:52] LABS: PTT 30.7 SEC (22.9-36.1); Prothrombin Time 13.1 SEC (12.0-14.7)
[2018-06-25 14:59] LABS: D-Dimer Test 14.62 *mcg/mL (0.27-0.43)
[2018-06-25] MEDS ORDERED: Amlodipine 5 MG TAB PO SCH (15:00)
[2018-06-25 15:10] LABS: FSP-Qualitative ABNORMAL (Normal); FSP-Semiquantitative >=40 & <80 mcg/mL (Less than 5)
[2018-06-25] MEDS: Sodium Chloride 0.9% 1,000 ML IV SCH (15:55)
[2018-06-25 18:13] LABS: Hemoglobin 6.5 g/dL (12.0-16.0); Mean Corpuscular HGB CONC 30.7 g/dL (32.0-36.0); Mean Corpuscular Volume 84.7 fL (78.0-98.0); Mean Platelet Volume 12.3 fL (7.4-10.4); Platelet Count 58 thou/uL (130-400); RBC Distribution Width 14.1 % (11.5-14.5); Red Blood Cell (RBC) Count 2.49 mill/uL (4.20-5.40); White Blood Cell (WBC) Count 10.7 thou/uL (4.8-10.8)
[2018-06-25 18:27] LABS: Band 4 % (5-11); Eosinophils 1 % (0-10); Hypochromia SLIGHT = 6-15 cells (100X) (0-5/hpf); Large Platelets SLIGHT; Lymphocytes 27 % (21-51); MDiff Complete? YES; Monocytes 2 % (0-10); Neutrophil 66 % (42-75); Platelet Morphology Comment Appears Decreased; Polychromasia SLIGHT = 2-3 cells (100X) (0-2/hpf); Schistocytes SLIGHT = 2-5 cells (100X) (0-1/hpf)
[2018-06-25 18:33] LABS: ALT (SGPT) 36 U/L (8-55); AST (SGOT) 36 U/L (5-34); Albumin 2.1 g/dL (3.5-5.0); Alkaline Phosphatase 54 U/L (40-150); Anion Gap 10 mmol/L (10-20); BUN (Urea Nitrogen) 21 mg/dL (7.0-18.7); Bilirubin, Total 0.4 mg/dL (0.2-1.2); Calc. Creatinine Clearance 67 mL/min (70-130); Calcium 7.4 mg/dL (7.8-10.44); Carbon Dioxide 28 mmol/L (22-29); Chloride 101 mmol/L (98-107); Estimated GFR-MDRD 25; Globulin 2.2 g/dL (2.4-3.5); Glucose 93 mg/dL (70-105); Magnesium 3.4 mg/dL (1.6-2.6); Potassium 3.7 mmol/L (3.5-5.1); Protein, Total 4.3 g/dL (6.0-8.3); Sodium 135 mmol/L (136-145)
[2018-06-25] MEDS: cloNIDine 0.1 MG TAB PO PRN (19:15)
[2018-06-25] MEDS ORDERED: Labetalol HCl 100 MG/20 ML VIAL SLOW IVP PRN (19:33)
--- NOTE | 2018-06-25 19:46 | PDOC.EVN ---
Event Note - Event Note Event Note: bp to 160/100 with HD noted. PRN order for iv labetalol with sbp >160 given. agree with prbc for anemia. no evidence active bleeding .
--- NOTE | 2018-06-25 20:18 | CON ---
DATE OF CONSULTATION: REASON FOR CONSULTATION: Anemia and thrombocytopenia. HISTORY OF PRESENT ILLNESS: A 37-year-old female with no significant past medical history, presented to the hospital at 34 weeks for preeclampsia starting within the last week. She had a low cervical on June 23, 2018. At that time, her blood pressure was elevated 163/74, and after delivery it continued to rise up to a maximum of 188/107 on June 24, 2018. The patient's hemoglobin was 11.3 at time of delivery into the last 48 hours, it has decreased to 7.4, and there is slight schistocytes seen on the peripheral smear. Her platelets were 251 at the time of surgery, 80 the next day, 62 and are currently 46. Her creatinine was 0.69 at the time of delivery and the following day was 1.99, is currently 2.92, and she is receiving dialysis with Dr. Lazcano. The patient's liver enzymes were normal at the time of and along there were AST peaked at 151, currently 64 and ALT peaked at 97, currently 52, total bilirubin is normal, LDH is elevated at 1016. The patient's albumin is 2.1. Her urine is significant for proteinuria up to 429 and 300 on last check. Urine total protein in 24 hours 5792. I was consulted by Dr. Parikh and Dr. Lazcano to differentiate HELLP syndrome and TTP. The patient has ongoing bleeding since her surgery; however, it is minimal and she denies any significant bruising. She denies any current pain or shortness of breath. She does complain of difficulty with vision in her central line of sight and just had a MRI of the brain without contrast that was negative. I reviewed her peripheral smear myself in the lab and there were slight schistocytes and spherocytes. REVIEW OF SYSTEMS: Ten-point review of systems negative except as per HPI. PAST MEDICAL HISTORY: No significant history. PAST SURGICAL HISTORY: on June 23, 2018. This is her sixth child. HOME MEDICATIONS: . SOCIAL HISTORY: No tobacco or alcohol. PHYSICAL EXAMINATION: VITAL SIGNS: Heart rate 87, blood pressure 130/79, respirations 16, saturating 95% on room air. GENERAL APPEARANCE: The patient is sitting up in chair, in no acute distress. HEENT: Normocephalic and atraumatic. RESPIRATIONS: Nonlabored. ABDOMEN: Soft and obese. EXTREMITIES: Upper and lower extremities, there is significant swelling in bilateral upper and lower extremities. NEUROLOGIC: The patient has a central vision deficit in both eyes and otherwise neurologic exam is nonfocal. LABORATORY DATA: White blood cells I think 20.9 the day after surgery and currently 12.2, hemoglobin 10.2 before surgery and currently 7.4, and platelet count 251 at surgery and currently 46. Creatinine 0.69 at the time of delivery, currently 2.92. AST as high as 151, currently 64 and was normal at baseline. ALT was also normal at baseline peaked to 97 is currently 52, LDH 1016, total bilirubin 0.5, and albumin 2.1. A 24-hour urine protein 5792. IMAGING DATA: MRI brain without contrast, no suspicious findings. ASSESSMENT AND PLAN: A 37-year-old female status post delivery for preeclampsia at 34 weeks gestation, now with worsening kidney and liver function, anemia, thrombocytopenia, and visual deficit. The patient's signs and symptoms are suggestive of HELLP syndrome as well as thrombotic thrombocytopenic purpura and hemolytic-uremic syndrome. Hemolytic anemia with schistocytes on peripheral smear and thrombocytopenia can be seen in all 3 of the above disorders. Typically with thrombotic thrombocytopenic purpura, the creatinine does not rise above 2 and hers is currently 2.92. The patient has history of preeclampsia, hypertension, elevated liver enzymes, and significant proteinuria is most suggestive of HELLP syndrome. There are schistocytes on peripheral smear; however, they are slight and this can be seen in HELLP syndrome as well as thrombotic thrombocytopenic purpura. Her platelets are relatively stable over the last 24 hours and she has a blood count repeating at 6 p.m. today along with a DIC panel. Her plasmic score for thrombotic thrombocytopenic purpura is either 4 or 5, and INR is required for this goal. Score 4 gives her low risk for thrombotic thrombocytopenic purpura and plasmapheresis is not recommended. With a score of 5 plasmapheresis can be considered if there is no other cause. However, I believe HELLP syndrome is the most likely cause in this patient. She does not at this time require immediate transfer for higher level of care and initiation of plasmapheresis. We will continue to monitor her hemoglobin, platelets, kidney function, and liver function, and if her platelets remain stable or increase then TTP is likely ruled out. If her platelets continue to drop significantly then may at that time recommend inpatient transfer for initiation of plasmapheresis. We will continue to follow this patient. Thank you for this consult. Job ID: [id number] [email or web address]
--- NOTE | 2018-06-26 07:27 | PRG ---
DATE OF SERVICE: 06/26/2018 TIME OF SERVICE: 0650 hours. SUBJECTIVE: The patient is resting comfortably in ICU. She underwent hemodialysis at approximately 1800 hours to 2100 hours on 06/25. She received 2 units of PRBCs during that as ordered by Dr. Lazcano and concurred with by myself and Dr. Arreoal, Hematology. During hemodialysis, the patient had a mildly elevated temperature and shaking and elevated blood pressures to greater than 160/100. During that time, she received one p.r.n. dose of labetalol 20 mg IV x1. Since then, her blood pressures have responded well. The patient feels much better. OBJECTIVE: VITAL SIGNS: Current blood pressure is 143/94 with a pulse of 79, respirations of 20, and pulse ox of 97%. Urine output has been approximately 30 to 50 mL/h with 1 hour with 180 mL output. ABDOMEN: Soft and her incision is dry. GENITOURINARY: There is no evidence of active bleeding with normal lochia. Exam is unchanged. LABORATORY DATA: No a.m. labs available at this time. We will go ahead and order CBC, comprehensive metabolic panel, and magnesium level. IMPRESSION: The patient with severe preeclampsia, now with HELLP syndrome with oliguria and acute renal failure likely secondary to acute tubular necrosis. Clinically, the patient seems to be improving in all areas at this time. PLAN: Continue supportive care. Follow up labs. Await opinion by Dr. Lazcano and Dr. Hurd this morning, but I think it is likely that the patient will be okay for discharge from unit later today. We will check out the patient's care to Dr. Sammy Parikh, OB hospitalist, who comes on at 0800. Job ID: [id number]
[2018-06-26 07:57] LABS: Hemoglobin 7.6 g/dL (12.0-16.0); Mean Corpuscular HGB CONC 32.9 g/dL (32.0-36.0); Mean Corpuscular Hemoglobin 28.6 pg (27.0-31.0); Mean Corpuscular Volume 86.8 fL (78.0-98.0); RBC Distribution Width 14.8 % (11.5-14.5); Red Blood Cell (RBC) Count 2.67 mill/uL (4.20-5.40)
[2018-06-26] MEDS: Acetaminophen 500 MG TAB PO PRN ×2 (07:59→22:13)
[2018-06-26] MEDS: Docusate Calcium (SURFAK) 240 MG CAP PO SCH ×2 (08:00→22:09)
[2018-06-26] MEDS: Prenatal Vitamin 1 TAB PO SCH (08:00)
[2018-06-26] MEDS: Ferrous Sulfate 325 MG TAB PO SCH ×2 (08:00→22:09)
[2018-06-26 08:23] LABS: ALT (SGPT) 25 U/L (8-55); AST (SGOT) 24 U/L (5-34); Albumin 2.2 g/dL (3.5-5.0); Alkaline Phosphatase 45 U/L (40-150); Anion Gap 5 mmol/L (10-20); BUN (Urea Nitrogen) 26 mg/dL (7.0-18.7); Bilirubin, Total 0.4 mg/dL (0.2-1.2); Calc. Creatinine Clearance 47 mL/min (70-130); Calcium 7.5 mg/dL (7.8-10.44); Carbon Dioxide 30 mmol/L (22-29); Chloride 103 mmol/L (98-107); Estimated GFR-MDRD 16; Globulin 2.1 g/dL (2.4-3.5); Glucose 76 mg/dL (70-105); Magnesium 3.4 mg/dL (1.6-2.6); Potassium 4.2 mmol/L (3.5-5.1); Protein, Total 4.3 g/dL (6.0-8.3); Sodium 134 mmol/L (136-145)
[2018-06-26] MEDS ORDERED: Amlodipine 5 MG TAB PO SCH (09:00)
[2018-06-26 09:04] LABS: #Basophils 0.1 thou/uL (0.0-0.2); #Eosinphils 0.1 thou/uL (0.0-0.7); #Lymphocytes 2.9 thou/uL (1.20-3.40); #Monocytes 1.1 thou/uL (0.11-0.59); %Basophils 0.4 % (0.0-1.0); %Eosinophils 1.1 % (0.0-10.0); %Lymphocytes 22.2 % (21.0-51.0); %Neutrophils 68.4 % (42.0-75.0); Large Platelets SLIGHT; MDiff Complete? YES; Mean Platelet Volume 11.5 fL (7.4-10.4); Microcytosis MODERATE=15-30 cells (100X) (0-5/hpf); Ovalocytes SLIGHT = 2-5 cells (100X) (0-1/hpf); Platelet Count 58 thou/uL (130-400); Platelet Morphology Comment Appears Decreased; Polychromasia SLIGHT = 2-3 cells (100X) (0-2/hpf); White Blood Cell (WBC) Count 13.2 thou/uL (4.8-10.8)
--- NOTE | 2018-06-26 09:45 | PRG ---
DATE OF SERVICE: 06/26/2018 SUBJECTIVE: Kendra Balbuena is a 37-year-old female. This morning, she is much improved. Vision is better. OBJECTIVE: VITAL SIGNS: Blood pressure 131/69, pulse 89, saturations are 95%, respiratory rate 18. GENERAL: Awake, alert, and responsive. Urine output is excellent. CHEST: Reveal decreased breath sounds. No wheezing. CARDIAC: Normal S1, S2. No gallops. ABDOMEN: Soft. LABORATORY DATA: White count 13,000, H and H 7 and 23, and platelet count is stable at 58,000. Liver functions improved. AST and ALT are back to normal. Albumin is low at 2.2. She had an MRI of the brain done last night, which showed no evidence of any changes. IMPRESSION: 1. Status post preeclampsia associated with HELLP syndrome. 2. Visual problems, improved. 3. Obesity. 4. Hypertension. PLAN: At this stage, continue PT, supportive care. Serial exam. No evidence of DIC at this stage. Numbers are improving. Job ID: [id number]
[2018-06-26] MEDS: Sodium Chloride 0.9% 1,000 ML IV SCH (10:33)
--- NOTE | 2018-06-26 10:41 | PDOC.EVN ---
Event Note - Event Note Event Note: Case reviewed with Dr Haddad at handoff this am. Patient remains in CCU bed 9. Stable and improving. I was updated that she has had 2 rounds of dialysis, and 2 units PRBCs as of yesterday. Primary care as per admitting MD (Dr Holden) now that patent stabilized.
[2018-06-26 11:27] LABS: Ref Lab Test Ordered ADAMTS 13 LEVEL; Reference Lab Name LABCORP
--- NOTE | 2018-06-26 13:26 | PRG ---
DATE OF SERVICE: 06/26/2018 SUBJECTIVE: This is a 37-year-old female being seen for acute kidney injury. The patient remains nonoliguric at this time. Denies any nausea, vomiting or chest pain. OBJECTIVE: See above. Awake, alert, in no acute distress. VITAL SIGNS: Afebrile, pulse 90, breathing 16, blood pressure 152/97. GENERAL APPEARANCE AND MENTAL STATUS: Fair. HEAD/NECK: Normocephalic. Atraumatic. EYES: EOMI. No deformity. EARS: Clear. No ulcers. NOSE: Intact. No lesions. MOUTH: Clear. No discharge. THROAT: Clear. No exudate. LUNGS: Clear. No crackles. CARDIAC: S1, S2. No rub. ABDOMEN: Benign. Bowel sounds positive. GENITALIA/RECTUM: Price absent. BACK/EXTREMITIES: Edema 0+. NEUROLOGICAL: Alert and motor intact. SKIN: LYMPHATICS: LABORATORY DATA: Show hemoglobin 7.6, potassium 4.2, magnesium 3.4. ASSESSMENT: Hypermagnesemia, improved. Chronic kidney disease with acute kidney injury due to acute tubular necrosis, nonoliguric. Anemia, management per Hematology. PLAN: We will transfuse as per recommendation. Medication based on GFR appropriate. No indication for dialysis today. We will recheck magnesium later in the day. Job ID: [id number]
[2018-06-26] MEDS ORDERED: HYDROcodone/Acetaminophen 5/325 mg Tablet PO PRN ×2 (14:19)
[2018-06-26] MEDS ORDERED: Sodium Chloride 0.9% 20 ML ONE (15:55)
[2018-06-26 16:27] LABS: Anion Gap 10 mmol/L (10-20); BUN (Urea Nitrogen) 33 mg/dL (7.0-18.7); Calc. Creatinine Clearance 39 mL/min (70-130); Calcium 8.1 mg/dL (7.8-10.44); Carbon Dioxide 28 mmol/L (22-29); Chloride 103 mmol/L (98-107); Estimated GFR-MDRD 13; Glucose 108 mg/dL (70-105); Potassium 4.2 mmol/L (3.5-5.1); Sodium 137 mmol/L (136-145)
[2018-06-26] MEDS: cloNIDine 0.1 MG TAB PO PRN ×2 (17:55→23:18)
[2018-06-26] MEDS ORDERED: cloNIDine 0.1 MG TAB PO SCH (23:45)
[2018-06-26] MEDS ORDERED: cloNIDine 0.1 MG TAB PO PRN (23:45)
[2018-06-27] MEDS: cloNIDine 0.1 MG TAB PO PRN ×3 (03:46→17:28)
[2018-06-27] MEDS: Acetaminophen 500 MG TAB PO PRN ×2 (07:12→20:45)
[2018-06-27 07:40] LABS: Hemoglobin 7.5 g/dL (12.0-16.0); Mean Corpuscular HGB CONC 34.1 g/dL (32.0-36.0); Mean Corpuscular Hemoglobin 29.6 pg (27.0-31.0); Mean Corpuscular Volume 86.8 fL (78.0-98.0); Mean Platelet Volume 10.5 fL (7.4-10.4); Platelet Count 72 thou/uL (130-400); Red Blood Cell (RBC) Count 2.55 mill/uL (4.20-5.40); White Blood Cell (WBC) Count 11.1 thou/uL (4.8-10.8)
[2018-06-27 07:57] LABS: Anion Gap 11 mmol/L (10-20); BUN (Urea Nitrogen) 41 mg/dL (7.0-18.7); Calc. Creatinine Clearance 34 mL/min (70-130); Calcium 7.8 mg/dL (7.8-10.44); Carbon Dioxide 25 mmol/L (22-29); Chloride 105 mmol/L (98-107); Estimated GFR-MDRD 11; Glucose 93 mg/dL (70-105); Potassium 4.4 mmol/L (3.5-5.1); Sodium 137 mmol/L (136-145)
[2018-06-27] MEDS: Prenatal Vitamin 1 TAB PO SCH (08:30)
[2018-06-27] MEDS: Ferrous Sulfate 325 MG TAB PO SCH ×2 (08:30→20:45)
[2018-06-27] MEDS: Docusate Calcium (SURFAK) 240 MG CAP PO SCH ×2 (08:30→20:37)
--- NOTE | 2018-06-27 08:31 | OP ---
DATE OF PROCEDURE: 06/24/2018 PROCEDURE PERFORMED: Left femoral vein dialysis catheter placement with ultrasound. PREOPERATIVE DIAGNOSIS: Acute renal failure. POSTOPERATIVE DIAGNOSIS: Acute renal failure. HISTORY OF PRESENT ILLNESS: Ms. Balbuena is a 37-year-old woman admitted with HELLP syndrome, who has gone into acute renal failure. Dialysis has been recommended for hypermagnesemia and a dialysis catheter is required for this purpose. DESCRIPTION OF PROCEDURE: After informed consent was obtained, the patient was placed in supine position and the right groin prepped and draped in standard sterile fashion. The patent compressible vein was identified using sterile ultrasound probe and local anesthesia infused through skin and subcutaneous tissues overlying this. The vein was easily accessed on the first attempt with excellent flow of dark venous nonpulsatile blood. A wire threaded, but would not advance beyond 15 cm despite multiple attempts. The wire was confirmed to be in the patent compressible vein at the level of the groin. A second attempt was made with a separate access to the femoral vein at a slightly higher level, but again, the wire would not advance beyond this point. It was felt that the patient might have an anomaly of her vein and therefore, further attempts were abandoned and attention turned to the left groin. The left groin was prepped and draped in standard sterile fashion and local anesthesia infused through skin and subcutaneous tissues over the patent compressible vein as identified by ultrasound. The vein was easily accessed on the first approach and had excellent flow of dark venous nonpulsatile blood. A wire threaded easily on this side without resistance and the skin incision was made at the wire and sequentially the tract was dilated over the wire, and then the dialysis catheter placed over the wire and secured to the skin with sutures. All three ports easily aspirated dark venous nonpulsatile blood and easily flushed without resistance. A sterile dressing was placed and the hemodialysis nurse alerted that access was obtained. ESTIMATED BLOOD LOSS: Minimal. COMPLICATIONS: There were no complications. SPECIMENS: There were no specimens. Job ID: [id number]
[2018-06-27] MEDS: Sodium Chloride 0.9% 1,000 ML IV SCH (08:32)
[2018-06-27] MEDS ORDERED: Amlodipine 10 MG TAB PO SCH (09:00)
--- NOTE | 2018-06-27 12:41 | PRG ---
DATE OF SERVICE: 06/27/2018 SUBJECTIVE: A 37-year-old female being seen for CKD. The patient denied nausea, vomiting, or chest pain. OBJECTIVE: CONSTITUTIONAL: The patient is awake and alert. VITAL SIGNS: Afebrile. Pulse 75, breathing 16, and blood pressure was 141/77. GENERAL APPEARANCE AND MENTAL STATUS: Fair. HEAD/NECK: Normocephalic. Atraumatic. EYES: EOMI. No deformity. EARS: Clear. No ulcers. NOSE: Intact. No lesions. MOUTH: Clear. No discharge. THROAT: Clear. No exudate. LUNGS: Clear. No crackles. CARDIAC: S1, S2. No rub. ABDOMEN: Benign. Bowel sounds positive. GENITALIA/RECTUM: Price absent. BACK/EXTREMITIES: Edema 0+. NEUROLOGICAL: Alert and motor intact. SKIN: LYMPHATICS: LABORATORY DATA: Labs reviewed. ASSESSMENT AND PLAN: 1. Acute kidney injury on chronic kidney disease due to acute tubular necrosis, nonoliguric. No indication for dialysis. 2. Hypertension, stable. 3. Anemia, stable. 4. Medications based on GFR appropriate. 5. Anemia, stable. 6. Thrombocytopenia, stable. 7. Management per Hematology. Job ID: [id number]
[2018-06-27] MEDS ORDERED: hydrALAZINE 20 MG/ML VIAL SLOW IVP SCH (12:45)
[2018-06-27] MEDS: Labetalol 100 MG TAB PO SCH ×2 (15:00→20:36)
[2018-06-27 17:03] LABS: Anion Gap 12 mmol/L (10-20); BUN (Urea Nitrogen) 45 mg/dL (7.0-18.7); Calc. Creatinine Clearance 33 mL/min (70-130); Calcium 8.3 mg/dL (7.8-10.44); Carbon Dioxide 28 mmol/L (22-29); Chloride 104 mmol/L (98-107); Estimated GFR-MDRD 11; Glucose 110 mg/dL (70-105); Potassium 4.7 mmol/L (3.5-5.1); Sodium 139 mmol/L (136-145)
[2018-06-28] MEDS: cloNIDine 0.1 MG TAB PO PRN ×3 (01:29→14:39)
[2018-06-28] MEDS: Sodium Chloride 0.9% 1,000 ML IV SCH (07:40)
[2018-06-28] MEDS: Prenatal Vitamin 1 TAB PO SCH (08:54)
[2018-06-28] MEDS: Ferrous Sulfate 325 MG TAB PO SCH ×2 (08:54→23:15)
[2018-06-28] MEDS: Docusate Calcium (SURFAK) 240 MG CAP PO SCH ×2 (08:55→23:15)
[2018-06-28] MEDS: Labetalol 100 MG TAB PO SCH ×3 (08:57→23:12)
[2018-06-28] MEDS: Acetaminophen 500 MG TAB PO PRN ×2 (08:58→14:35)
[2018-06-28 09:29] LABS: Hemoglobin 7.7 g/dL (12.0-16.0); Mean Corpuscular HGB CONC 32.7 g/dL (32.0-36.0); Mean Corpuscular Hemoglobin 28.9 pg (27.0-31.0); Mean Corpuscular Volume 88.2 fL (78.0-98.0); Mean Platelet Volume 9.9 fL (7.4-10.4); Platelet Count 98 thou/uL (130-400); RBC Distribution Width 15.6 % (11.5-14.5); Red Blood Cell (RBC) Count 2.67 mill/uL (4.20-5.40); White Blood Cell (WBC) Count 10.3 thou/uL (4.8-10.8)
[2018-06-28 09:45] LABS: Anion Gap 15 mmol/L (10-20); BUN (Urea Nitrogen) 52 mg/dL (7.0-18.7); Calc. Creatinine Clearance 33 mL/min (70-130); Calcium 8.2 mg/dL (7.8-10.44); Carbon Dioxide 25 mmol/L (22-29); Chloride 105 mmol/L (98-107); Estimated GFR-MDRD 11; Glucose 87 mg/dL (70-105); Potassium 4.6 mmol/L (3.5-5.1); Sodium 140 mmol/L (136-145)
--- NOTE | 2018-06-28 10:46 | ULT ---
LIMITED OBSTETRICAL ULTRASOUND UMBILICAL ARTERIAL DOPPLER ULTRASOUND: Date: 06/23/2018 HISTORY: 37-year-old female with preeclampsia TECHNIQUE: Multiplanar grayscale sonographic imaging of the gravid uterus obtained. Doppler interrog ation of the umbilical artery with color flow and spectral analysis performed. FINDINGS: Cervical length is 5 cm. Single intrauterine gestation present with vertex presentation. heart rate is 157 bpm. anatomy was not fully assessed on this examination. The placenta is located on the right, and demonstrates no evidence for abruption or previa. Amniotic fluid index is 11 cm. Biometry: BPD: 8.2 cm, 32 weeks 6 days HC: 31.1 cm, 34 weeks 5 days AC: 29.3 cm , 33 weeks 2 days FL: 6.3 cm, 32 weeks 5 days Average age based on ultrasound is 33 weeks 5 days. Estimated date of delivery is 08/06/2018 Estimated weight is 2150 g, +/- 318 g. Umbilical arterial Doppler ultrasound performed. Peak systolic velocity of the umbilical artery range s from 37 cm/second to 52 cm/second with a systolic/diastolic ratio measuring 1.8-2.7 cm. IMPRESSION: Single live intrauterine gestation as detailed above. Transcribed Date/Time: 06/28/2018 10:46 AM
--- NOTE | 2018-06-28 12:20 | PRG ---
DATE OF SERVICE: 06/28/2018 SUBJECTIVE: This is a 37-year-old female being seen for acute kidney injury. The patient denies any nausea, vomiting, or chest pain. States edema is getting better. PHYSICAL EXAMINATION: CONSTITUTIONAL: The patient is awake, alert. VITAL SIGNS: Afebrile. Pulse 84, breathing 16, blood pressure 149/71. GENERAL APPEARANCE AND MENTAL STATUS: Fair. HEAD/NECK: Normocephalic. Atraumatic. EYES: EOMI. No deformity. EARS: Clear. No ulcers. NOSE: Intact. No lesions. MOUTH: Clear. No discharge. THROAT: Clear. No exudate. LUNGS: Clear. No crackles. CARDIAC: S1, S2. No rub. ABDOMEN: Benign. Bowel sounds positive. GENITALIA/RECTUM: Price absent. BACK/EXTREMITIES: Lower extremities have edema. NEUROLOGICAL: Alert and motor intact. SKIN: LYMPHATICS: ASSESSMENT: 1. Chronic kidney disease, stage 5 due to acute tubular necrosis. Continue hydration. Patient is nonoliguric. No indication for dialysis. 2. Proteinuria. Check random urine protein creatinine ratio. 3. Anemia stable. 4. Medication based on GFR appropriate, no indication for dialysis. I will remove the femoral dialysis catheter as it is not flushing. Job ID: [id number]
[2018-06-28 14:32] LABS: ALT (SGPT) 56 U/L (8-55); AST (SGOT) 45 U/L (5-34); Alkaline Phosphatase 57 U/L (40-150); Anion Gap 15 mmol/L (10-20); BUN (Urea Nitrogen) 54 mg/dL (7.0-18.7); Bilirubin, Total 0.5 mg/dL (0.2-1.2); Calc. Creatinine Clearance 34 mL/min (70-130); Calcium 8.6 mg/dL (7.8-10.44); Carbon Dioxide 26 mmol/L (22-29); Chloride 106 mmol/L (98-107); Estimated GFR-MDRD 11; Globulin 2.8 g/dL (2.4-3.5); Glucose 90 mg/dL (70-105); Magnesium 2.8 mg/dL (1.6-2.6); Potassium 4.8 mmol/L (3.5-5.1); Protein, Total 5.8 g/dL (6.0-8.3); Sodium 142 mmol/L (136-145)
[2018-06-28 15:13] LABS: Creatinine, Urine 30.12 mg/dL (47-110)
[2018-06-28 16:30] LABS: Anion Gap 15 mmol/L (10-20); BUN (Urea Nitrogen) 56 mg/dL (7.0-18.7); Calc. Creatinine Clearance 35 mL/min (70-130); Calcium 8.4 mg/dL (7.8-10.44); Carbon Dioxide 25 mmol/L (22-29); Chloride 106 mmol/L (98-107); Estimated GFR-MDRD 12; Glucose 107 mg/dL (70-105); Sodium 141 mmol/L (136-145)
[2018-06-29] MEDS: Sodium Chloride 0.9% 1,000 ML IV SCH (04:05)
--- NOTE | 2018-06-29 07:47 | PRG ---
DATE OF SERVICE: 06/29/2018 SUBJECTIVE: This is a 37-year-old female being seen for acute kidney injury. The patient denies nausea, vomiting, or chest pain. OBJECTIVE: CONSTITUTIONAL: The patient is awake, alert. VITAL SIGNS: Afebrile, pulse 69, breathing 16, blood pressure 135/62. GENERAL APPEARANCE AND MENTAL STATUS: Fair. HEAD/NECK: Normocephalic. Atraumatic. EYES: EOMI. No deformity. EARS: Clear. No ulcers. NOSE: Intact. No lesions. MOUTH: Clear. No discharge. THROAT: Clear. No exudate. LUNGS: Clear. No crackles. CARDIAC: S1, S2. No rub. ABDOMEN: Benign. Bowel sounds positive. GENITALIA/RECTUM: Price absent. BACK/EXTREMITIES: Edema 0+. NEUROLOGICAL: Alert and motor intact. SKIN: LYMPHATICS: LABORATORY DATA: Labs are pending. ASSESSMENT AND PLAN: 1. Chronic kidney disease, stage 5, with acute kidney injury due to acute tubular necrosis. Labs are pending. 2. Hypertension, stable. 3. Anemia. We will follow hemoglobin. There was no indication for dialysis yesterday. Job ID: [id number]
[2018-06-29 08:03] LABS: #Basophils 0.1 thou/uL (0.0-0.2); #Eosinphils 0.2 thou/uL (0.0-0.7); #Lymphocytes 2.3 thou/uL (1.20-3.40); #Monocytes 0.9 thou/uL (0.11-0.59); #Neutrophils 8.2 thou/uL (1.40-6.50); %Basophils 0.6 % (0.0-1.0); %Eosinophils 1.5 % (0.0-10.0); %Lymphocytes 19.8 % (21.0-51.0); %Monocytes 7.7 % (0.0-10.0); %Neutrophils 70.5 % (42.0-75.0); Hemoglobin 7.8 g/dL (12.0-16.0); Mean Corpuscular HGB CONC 33.4 g/dL (32.0-36.0); Mean Corpuscular Hemoglobin 29.6 pg (27.0-31.0); Mean Corpuscular Volume 88.5 fL (78.0-98.0); Mean Platelet Volume 9.7 fL (7.4-10.4); Platelet Count 138 thou/uL (130-400); RBC Distribution Width 16.4 % (11.5-14.5); Red Blood Cell (RBC) Count 2.64 mill/uL (4.20-5.40); White Blood Cell (WBC) Count 11.6 thou/uL (4.8-10.8)
[2018-06-29 08:26] LABS: Anion Gap 15 mmol/L (10-20); BUN (Urea Nitrogen) 55 mg/dL (7.0-18.7); Calc. Creatinine Clearance 37 mL/min (70-130); Calcium 8.4 mg/dL (7.8-10.44); Carbon Dioxide 24 mmol/L (22-29); Chloride 108 mmol/L (98-107); Estimated GFR-MDRD 13; Glucose 98 mg/dL (70-105); Potassium 4.8 mmol/L (3.5-5.1); Sodium 142 mmol/L (136-145)
[2018-06-29] MEDS: Labetalol 100 MG TAB PO SCH ×3 (08:42→22:11)
[2018-06-29] MEDS: Acetaminophen 500 MG TAB PO PRN ×2 (08:45→14:50)
[2018-06-29] MEDS: cloNIDine 0.1 MG TAB PO PRN ×2 (08:45→17:23)
[2018-06-29] MEDS: Docusate Calcium (SURFAK) 240 MG CAP PO SCH ×2 (08:46→22:13)
[2018-06-29] MEDS: Prenatal Vitamin 1 TAB PO SCH (08:46)
[2018-06-29] MEDS: Ferrous Sulfate 325 MG TAB PO SCH ×2 (08:46→22:13)
[2018-06-29 15:32] LABS: Anion Gap 13 mmol/L (10-20); BUN (Urea Nitrogen) 54 mg/dL (7.0-18.7); Calc. Creatinine Clearance 39 mL/min (70-130); Calcium 8.4 mg/dL (7.8-10.44); Carbon Dioxide 27 mmol/L (22-29); Chloride 107 mmol/L (98-107); Estimated GFR-MDRD 13; Glucose 107 mg/dL (70-105); Magnesium 2.3 mg/dL (1.6-2.6); Potassium 4.8 mmol/L (3.5-5.1); Sodium 142 mmol/L (136-145)
[2018-06-30] MEDS: Acetaminophen 500 MG TAB PO PRN ×3 (00:39→22:40)
[2018-06-30] MEDS: Sodium Chloride 0.9% 1,000 ML IV SCH ×2 (04:25→19:23)
[2018-06-30 09:16] LABS: Anion Gap 13 mmol/L (10-20); BUN (Urea Nitrogen) 43 mg/dL (7.0-18.7); Calc. Creatinine Clearance 48 mL/min (70-130); Calcium 8.3 mg/dL (7.8-10.44); Carbon Dioxide 24 mmol/L (22-29); Chloride 109 mmol/L (98-107); Estimated GFR-MDRD 17; Glucose 104 mg/dL (70-105); Potassium 4.4 mmol/L (3.5-5.1); Sodium 142 mmol/L (136-145)
[2018-06-30] MEDS: Prenatal Vitamin 1 TAB PO SCH (10:05)
[2018-06-30] MEDS: Ferrous Sulfate 325 MG TAB PO SCH ×2 (10:05→22:35)
[2018-06-30] MEDS: Labetalol 100 MG TAB PO SCH ×3 (10:05→22:35)
[2018-06-30] MEDS: Docusate Calcium (SURFAK) 240 MG CAP PO SCH (10:05)
[2018-06-30 10:36] LABS: #Basophils 0.1 thou/uL (0.0-0.2); #Eosinphils 0.2 thou/uL (0.0-0.7); #Lymphocytes 2.3 thou/uL (1.20-3.40); #Monocytes 0.9 thou/uL (0.11-0.59); #Neutrophils 7.8 thou/uL (1.40-6.50); %Basophils 0.7 % (0.0-1.0); %Eosinophils 1.5 % (0.0-10.0); %Lymphocytes 20.4 % (21.0-51.0); %Monocytes 8.1 % (0.0-10.0); %Neutrophils 69.3 % (42.0-75.0); Hemoglobin 7.8 g/dL (12.0-16.0); Mean Corpuscular HGB CONC 32.6 g/dL (32.0-36.0); Mean Corpuscular Hemoglobin 29.2 pg (27.0-31.0); Mean Corpuscular Volume 89.4 fL (78.0-98.0); Mean Platelet Volume 9.6 fL (7.4-10.4); Platelet Count 187 thou/uL (130-400); RBC Distribution Width 16.5 % (11.5-14.5); Red Blood Cell (RBC) Count 2.68 mill/uL (4.20-5.40); White Blood Cell (WBC) Count 11.3 thou/uL (4.8-10.8)
--- NOTE | 2018-06-30 12:29 | PRG ---
DATE OF SERVICE: SUBJECTIVE: A 37-year-old female being seen for acute kidney injury. The patient denied nausea, vomiting, or chest pain. OBJECTIVE: CONSTITUTIONAL: The patient is awake and alert. VITAL SIGNS: Pulse 77, breathing 16, and blood pressure 135/74. GENERAL APPEARANCE AND MENTAL STATUS: Fair. HEAD/NECK: Normocephalic. Atraumatic. EYES: EOMI. No deformity. EARS: Clear. No ulcers. NOSE: Intact. No lesions. MOUTH: Clear. No discharge. THROAT: Clear. No exudate. LUNGS: Clear. No crackles. CARDIAC: S1, S2. No rub. ABDOMEN: Benign. Bowel sounds positive. GENITALIA/RECTUM: Price absent. BACK/EXTREMITIES: Edema 0+. NEUROLOGICAL: Alert and motor intact. SKIN: LYMPHATICS: LABORATORY DATA: Reviewed. ASSESSMENT AND PLAN: 1. Chronic kidney disease, stage 4, stable. 2. Acute tubular necrosis, improved. 3. Hypertension, stable. 4. Hyperkalemia, stable. 5. No indication for dialysis. The patient is non-oliguric. Job ID: [id number]
[2018-06-30 14:08] VITALS: BMI 43.6
[2018-07-01] MEDS: Docusate Calcium (SURFAK) 240 MG CAP PO SCH ×3 (07:19→22:18)
[2018-07-01 07:57] LABS: #Eosinphils 0.1 thou/uL (0.0-0.7); #Lymphocytes 2.3 thou/uL (1.20-3.40); #Monocytes 0.7 thou/uL (0.11-0.59); %Basophils 0.5 % (0.0-1.0); %Eosinophils 1.3 % (0.0-10.0); %Lymphocytes 25.3 % (21.0-51.0); %Monocytes 7.3 % (0.0-10.0); %Neutrophils 65.6 % (42.0-75.0); Hemoglobin 7.6 g/dL (12.0-16.0); Mean Corpuscular HGB CONC 31.6 g/dL (32.0-36.0); Mean Corpuscular Hemoglobin 28.7 pg (27.0-31.0); Mean Corpuscular Volume 90.8 fL (78.0-98.0); Mean Platelet Volume 8.9 fL (7.4-10.4); Platelet Count 225 thou/uL (130-400); RBC Distribution Width 16.7 % (11.5-14.5); Red Blood Cell (RBC) Count 2.63 mill/uL (4.20-5.40); White Blood Cell (WBC) Count 9.2 thou/uL (4.8-10.8)
[2018-07-01 08:15] LABS: Anion Gap 14 mmol/L (10-20); BUN (Urea Nitrogen) 39 mg/dL (7.0-18.7); Calc. Creatinine Clearance 62 mL/min (70-130); Calcium 8.7 mg/dL (7.8-10.44); Carbon Dioxide 21 mmol/L (22-29); Chloride 111 mmol/L (98-107); Estimated GFR-MDRD 23; Glucose 85 mg/dL (70-105); Potassium 4.6 mmol/L (3.5-5.1); Sodium 141 mmol/L (136-145)
[2018-07-01] MEDS: Ferrous Sulfate 325 MG TAB PO SCH ×2 (09:50→22:17)
[2018-07-01] MEDS: Prenatal Vitamin 1 TAB PO SCH (09:51)
[2018-07-01] MEDS: Labetalol 100 MG TAB PO SCH ×2 (09:51→14:35)
--- NOTE | 2018-07-01 10:37 | PRG ---
DATE OF SERVICE: 07/01/2018 SUBJECTIVE: A 37-year-old female being seen for acute kidney injury. The patient denied nausea, vomiting, or chest pain. OBJECTIVE: CONSTITUTIONAL: The patient is awake and alert. VITAL SIGNS: Pulse 81, breathing 16, blood pressure 158/78. GENERAL APPEARANCE AND MENTAL STATUS: Fair. HEAD/NECK: Normocephalic. Atraumatic. EYES: EOMI. No deformity. EARS: Clear. No ulcers. NOSE: Intact. No lesions. MOUTH: Clear. No discharge. THROAT: Clear. No exudate. LUNGS: Clear. No crackles. CARDIAC: S1, S2. No rub. ABDOMEN: Benign. Bowel sounds positive. GENITALIA/RECTUM: Price absent. BACK/EXTREMITIES: Lower extremity shows edema. NEUROLOGICAL: Alert and motor intact. SKIN: LYMPHATICS: LABORATORY DATA: Labs show hemoglobin 7.6. Creatinine 2.3. ASSESSMENT AND PLAN: Acute kidney injury, improves due to acute tubular necrosis. Chronic kidney disease stage 4, stable. Hypertension, stable. Metabolic acidosis, stable. No indication for dialysis at this time. Once the creatinine is less than 2, the patient can go home. Job ID: [id number]
[2018-07-01] MEDS: Acetaminophen 500 MG TAB PO PRN (17:38)
[2018-07-01] MEDS: cloNIDine 0.1 MG TAB PO PRN (22:21)
[2018-07-02] MEDS: Sodium Chloride 0.9% 1,000 ML IV SCH ×2 (00:29→08:01)
[2018-07-02] MEDS: cloNIDine 0.1 MG TAB PO PRN (04:18)
[2018-07-02] MEDS: Acetaminophen 500 MG TAB PO PRN ×2 (04:18→20:56)
[2018-07-02] MEDS: Labetalol 100 MG TAB PO SCH ×3 (08:00→20:56)
[2018-07-02 08:19] LABS: Anion Gap 12 mmol/L (10-20); BUN (Urea Nitrogen) 31 mg/dL (7.0-18.7); Calc. Creatinine Clearance 91 mL/min (70-130); Calcium 8.5 mg/dL (7.8-10.44); Carbon Dioxide 20 mmol/L (22-29); Chloride 113 mmol/L (98-107); Estimated GFR-MDRD 36; Glucose 97 mg/dL (70-105); Potassium 4.4 mmol/L (3.5-5.1); Sodium 141 mmol/L (136-145)
[2018-07-02] MEDS: Prenatal Vitamin 1 TAB PO SCH (09:56)
[2018-07-02] MEDS: Ferrous Sulfate 325 MG TAB PO SCH ×2 (09:56→20:58)
[2018-07-02] MEDS: Docusate Calcium (SURFAK) 240 MG CAP PO SCH ×2 (09:56→20:56)
[2018-07-02 20:58] VITALS: BP 140/67
[2018-07-02 21:58] VITALS: TEMP 98.5
== END 2018-07-02 21:30 | disposition home or self-care (01) | DRG 786 ==
LOC: L&D/OP 15:56 → OBSVTOIN 19:10 → L&D 19:10 → CCU 06-24 15:19 → 3SW 06-26 14:15
PROVIDERS: ADMIT Family Medicine; ATTEND Family Medicine
PROC: 10D00Z1 Extraction of Products of Conception, Low, Open Approach (ICD-10-PCS; principal; 2018-06-23)
PROC: 06HY33Z Insertion of Infusion Device into Lower Vein, Percutaneous Approach (ICD-10-PCS; 2018-06-24)
PROC: 5A1D70Z Performance of Urinary Filtration, Intermittent, Less than 6 Hours Per Day (ICD-10-PCS; 2018-06-24)
PROC: B54CZZA Ultrasonography of Left Lower Extremity Veins, Guidance (ICD-10-PCS; 2018-06-24)
PROC: 30233N1 Transfusion of Nonautologous Red Blood Cells into Peripheral Vein, Percutaneous Approach (ICD-10-PCS; 2018-06-25)
DX: O14.24 HELLP syndrome, complicating childbirth (principal); N17.0 Acute kidney failure with tubular necrosis; D59.3 Hemolytic-uremic syndrome; O99.12 Other diseases of the blood and blood-forming organs and certain disorders involving the immune mechanism complicating childbirth; D61.818 Other pancytopenia; N18.5 Chronic kidney disease, stage 5; I12.0 Hypertensive chronic kidney disease with stage 5 chronic kidney disease or end stage renal disease; O76 Abnormality in fetal heart rate and rhythm complicating labor and delivery; O99.89 Other specified diseases and conditions complicating pregnancy, childbirth and the puerperium; O10.22 Pre-existing hypertensive chronic kidney disease complicating childbirth; O99.214 Obesity complicating childbirth; E66.9 Obesity, unspecified; Z3A.34 34 weeks gestation of pregnancy; Z37.0 Single live birth; O99.284 Endocrine, nutritional and metabolic diseases complicating childbirth; E83.41 Hypermagnesemia; E87.5 Hyperkalemia
CPT/HCPCS: 36415; 36430; 51702; 70551; 71045; 76700; 76805; 76815; 76819; 80048; 80053; 81001; 82570; 83615; 83735; 83880; 84156; 84550; 85007; 85025; 85027; 85049; 85300; 85362; 85379; 85384; 85610; 85730; 86706; 86850; 86900; 86901; 87340; 88305; 88307; 90935; 99285; C1752; G0257; J0360; J0690; J0702; J1644; J1885; J1940; J2175; J2270; J2405; J2540; J2590; J2765; J3475; J3490; P9016